=== PATIENT | male | born 1965 | race Caucasian/White ===

== ENCOUNTER 2025-02-01 10:21 | Emergency (ER) | payer BC, SELFPAY ==
--- NOTE | 2025-02-01 10:25 | ED_ITS ---
HPI - Skin/Abscess/Foreign Bdy General Chief complaint: Skin/Abscess/Foreign Body Stated complaint: L toe Time Seen by Provider: 02/01/25 10:25 Source: patient Mode of arrival: ambulatory Limitations: no limitations History of Present Illness HPI narrative: Isreal is a 59 year old male patient presenting to the clinic today with c/o left toe wound x2 weeks. He reports not sure what he did to his toe. Has a wound to the distal left 3rd toe. No pain, discharge, or redness. No fever, chills, or body aches. He is type 2 diabetic and suffers from neuropathy Related Data Home Medications ?Medication ?Instructions ?Recorded ?Confirmed ?Last Taken ?Type allopurinol 300 mg tablet mg 02/01/25 Unknown History buspirone 10 mg tablet mg 02/01/25 Unknown History diazepam 5 mg tablet mg 02/01/25 Unknown History duloxetine 30 mg capsule,delayed mg PO 02/01/25 Unkno wn History release fluticasone propionate 50 intranasal 02/01/25 Unknown History mcg/actuation nasal spray,suspension gabapentin 300 mg capsule mg 02/01/25 Unknown History glipizide 5 mg tablet mg 02/01/25 Unknown History ibuprofen 800 mg tablet mg 02/01/25 Unknown History metformin 1,000 mg tablet mg 02/01/25 Unknown History oxycodone-acetaminophen 10 mg-325 tablet 02/01/25 Unk nown History mg tablet pantoprazole 40 mg tablet,delayed mg PO 02/01/25 Unkn own History release trazodone 50 mg tablet mg 02/01/25 Unknown History Allergies Allergy/AdvReac Type Severity Reaction Status Date / Time No Known Allergies Allergy Verified 02/01/25 10:46 Review of Systems Review of Systems: Pertinent positives per HPI. Patient denies any fever, chills, rash, headache, visual changes, dizziness, cough, runny nose, sore throat, shortness of breath, chest pain, palpitations, nausea, vomiting, diarrhea, constipation, abdominal pain, or any urinary issues. PMFSH Comments At the time of my signature, I reviewed and agree with the nursing past medical, surgical, social, and family history. There is no relevant family history pertinent to the patient complaint. Exam Narrative: General: Well-developed, well nourished, in no apparent distress Head: Normocephalic, atraumatic. Cardio: Regular rate and rhythm, s1 and s2 normal, no murmur appreciated. Resp: Clear to auscultation bilaterally, no rhonchi, rales, wheezing or rubs. Integumentary: [place], warm, and dry, closed wound to the left 3rd distal toe without infection- has some old blood under the skin- no redness, swelling, or discharge. Course Course Emergency Course: Portions of this record may have been created with voice recognition software. Level of Care: Express Care Visit Vital Signs Vital signs: Vital Signs Temperature 36.5 C 02/01/25 10:34 Pulse Rate 78 02/01/25 10:34 Respiratory Rate 20 02/01/25 10:34 Blood Pressure 139/69 02/01/25 10:34 Pulse Oximetry 98 02/01/25 10:34 Oxygen Delivery Room Air 02/01/25 10:34 Temperature 36.5 C 02/01/25 10:34 Pulse Rate 78 02/01/25 10:34 Respiratory Rate 20 02/01/25 10:34 Blood Pressure 139/69 02/01/25 10:34 Pulse Oximetry 98 02/01/25 10:34 Oxygen Delivery Room Air 02/01/25 10:34 Vital signs reviewed MDM - Skin/Abscess/Foreign Bdy MDM Narrative Medical decision making narrative: At the time of visit patient is resting comfortably on the exam table. Patient appears to be nontoxic. C/o left toe wound x2 weeks. He reports not sure what he did to his toe. Has a wound to the distal left 3rd toe. No pain, discharge, or redness. No fever, chills, or body aches. He is type 2 diabetic and suffers from neuropathy. On exam patient has closed wound to the left 3rd distal toe without infection- has some old blood under the skin- no redness, swelling, or discharge. Plan: Patient has a non infected wound to the left distal 3rd toe. Offered x- ray and patient declined. Recommend following up with PCP/horse groomer. Supportive measures were discussed with the patient and they voiced understanding discharge instructions and agrees to treatment plan. Return precautions reviewed Differential Diagnosis Differential diagnosis: Likely abscess of skin or subcutaneous tissue, viral exanthem, dermatophytosis, urticaria, herpes zoster, allergic reaction to drug, cellulitis, insect bites, impetigo and contact dermatitis Discharge Plan Discharge Clinical Impression: Open wound of toe of left foot Patient Disposition: Home Condition: Stable Instructions: Antibiotic Form, Wound Infection (ED) Additional Instructions: No signs or symptoms of infection in the clinic today Keep the area clean and dry Wash daily with soap and water Watch for signs and symptoms of infection which include redness, swelling, increase in pain, fever, purulent discharge, or streaking Follow-up with PCP/horse groomer as discussed Patient Language: [place] Prescriptions: No Action trazodone 50 mg tablet ibuprofen 800 mg tablet oxycodone-acetaminophen 10-325 mg tablet pantoprazole 40 mg tablet,delayed release (DR/EC) PO metformin 1,000 mg tablet buspirone 10 mg tablet gabapentin 300 mg capsule allopurinol 300 mg tablet fluticasone propionate 50 mcg/actuation spray,suspension INTRANASAL glipizide 5 mg tablet diazepam 5 mg tablet duloxetine 30 mg capsule,delayed release(DR/EC) PO Follow-up/Referrals: UNKNOWN,DOCTOR [Primary Care Provider] Time of Disposition: 10:45 Quality NIHSS Nursing Documentation ED NIHSS nursing documentation: reviewed/agree
[2025-02-01 10:34] VITALS: BP 139/69; PULSE 78; RESP 20; TEMP 36.5; O2SAT 98
--- OUTSIDE RECORDS SUMMARY | 2025-02-01 14:47 | XMS_ITS | Encounter Summary ---
Author Organization [facility] Address [facility] [place] [address] Care Team Providers Care Vessel Slagman Name Role Phone Unavailable Primary Care Provider Unavailabl e Encounter Details Date Type Department Care Team (Late st Contact Info) Description 08/21/2018 Abstract [facility] CONVERSION [address] [place] [address] , Generic Conversion, Social History Tobacco Use Types Packs/Day Years Used Date Smoking Tobacco: Every Day Cigarettes 0.5 40 Smokeless Tobacco: Never Alcohol Use Standard Drinks/Week Comments No 0 (1 standard drink = 0.6 oz pur e alcohol) Sex and Gender Information Value Date Recorded Sex Assigned at Not on file Legal Sex Male 8:30 PM CDT Gender Identity Not on file Sexual Orientation Not on file documented as of this encounter Functional Status * RETIRED Are you deaf or do you have serious difficulty hearing Answer Date of Assessment Author Status No 08/23/2017 12:30 PM CDT Acti ve * RETIRED Are you blind or do you have serious difficulty seeing, even when wearing glasses? Answer Date of Assessment Author Status No 08/23/2017 12:30 PM CDT Acti ve * Do you have serious difficulty walking or climbing stairs? Answer Date of Assessment Author Status No 08/23/2017 12:30 PM CDT Nolvia Moise R N Active * Do you have difficulty dressing or bathing? Answer Date of Assessment Author Status No 08/23/2017 12:30 PM CDT Nolvia Moise R N Active * Because of a physical, mental, or emotional condition, do you have difficulty doing errands alone such as visiting a doctor's office or shopping? Answer Date of Assessment Author Status No 08/23/2017 12:30 PM Nolvia Nixon R N Active documented as of this encounter Mental Status * Because of a physical, mental, or emotional condition, do you have serious difficulty concentrating, remembering, or making decisions? Answer Entry Date Author Status No 08/23/2017 12:30 PM Nolvia Nixon R N Active documented in this encounter Plan of Treatment Not on file documented as of this encounter Visit Diagnoses Not on filedocumented in this encounter
--- OUTSIDE RECORDS SUMMARY | 2025-02-01 14:47 | XMS_ITS | Clinical Summary ---
Author Organization [facility] Address [address] [place] [address] Care Team Providers Care Collection Analyst Name Role Phone Nigel Whitney Primary Care Provider [phone] Alissa Wesley MD Unavailable [phone] Allergies No known active allergies Medications aspirin 81 mg enteric coated tablet Take 1 tablet (81 mg total) by mouth daily 90 tablet 3 10/24/19 21 Active Additional Information Patient not taking.Reported on 08/17/2024 flash glucose scanning reader (FreeStyle Julio 14 Day [place]) miscIndications :Type 2 diabetes mellitus with diabetic polyneuropathy, without long-term current use of insulin (HCC) Use to scan sensor as directed 1 each 01/31/20 21 Active flash glucose sensor (FreeStyle Julio 2 Sensor) kitIndications: Diabetes mellitus type II, non insulin dependent (HCC) 1 Device every 14 (fourteen) days 2 kit 11 04/15/19 23 Active nitroglycerin (NITROSTAT) 0.[address] 1 tablet (0.4 mg total) under the tongue every 5 (five) minutes as needed for chest pain (Chest pain) 30 tablet 12/27/19 23 Active isosorbide mononitrate ER (IMDUR) 30 mg 24 hr tablet TAKE 1 TABLET BY MOUTH DAILY 90 tablet 3 04/24/19 24 Active Farxiga 10 mg tablet TAKE 1 TABLET BY MOUTH DAILY 30 tablet 10 04/27/19 24 Active Additional Information Patient not taking.Reported on 08/17/2024 atorvastatin (LIPITOR) 40 mg tablet TAKE 1 TABLET BY MOUTH NIGHTLY 90 tablet 3 05/27/19 24 Active clopidogreL (PLAVIX) 75 mg tablet TAKE 1 TABLET BY MOUTH DAILY 90 tablet 1 09/14/19 24 Active Additional Information Patient not taking.Reported on 08/17/2024 lidocaine (LIDODERM) 5 % Place 2 patches on the skin daily Remove & discard patch within 12 hours or as directed by MD. 60 patch 11 03/29/19 25 Active valsartan (DIOVAN) 160 mg tablet Take 1 tablet (160 mg total) by mouth daily 30 tablet 11 03/29/19 25 026 Active metFORMIN (GLUCOPHAGE) 1,000 mg tablet TAKE 1 TABLET BY MOUTH TWICE DAILY WITH MEALS 180 tablet 2 06/07/19 25 Active allopurinoL (ZYLOPRIM) 300 mg tablet TAKE 1 TABLET (300 MG TOTAL) BY MOUTH DAILY 90 tablet 2 06/07/19 25 Active furosemide (LASIX) 40 mg tablet Take 1 tablet (40 mg total) by mouth 2 (two) times a day 60 tablet 11 06/17/19 25 Active gabapentin (NEURONTIN) 300 mg capsule Take 1 capsule (300 mg total) by mouth 3 (three) times a day 270 capsule 3 10/04/19 25 Active glipiZIDE (GLUCOTROL) 5 mg tablet Take 1 tablet (5 mg total) by mouth daily with breakfast 30 tablet 10 10/04/[address] (PROTONIX) 40 mg EC tablet Take 1 tablet (40 mg total) by mouth daily 90 tablet 3 10/15/19 25 Active ibuprofen (ADVIL,MOTRIN) 800 mg tablet TAKE 1 TABLET BY MOUTH TWICE DAILY NEEDED FOR PAIN 60 tablet 5 11/29/19 25 Active oxyCODONE-aceta minophen (PERCOCET) 10-325 mg per tablet Take 1 tablet by mouth every 8 (eight) hours as needed for pain 90 tablet 12/10/19 25 Active busPIRone (BUSPAR) 15 mg tablet TAKE 1 TABLET(15 MG) BY MOUTH TWICE DAILY 180 tablet 02/01/20 25 Active busPIRone (BUSPAR) 15 mg tabletIndicatio ns:Generalized Anxiety Disorder Take 1 tablet (15 mg total) by mouth 2 (two) times a day 180 tablet 10/26/19 25 025 Discontinued Active Problems Problem Noted Date Diagnosed Date Diabetic polyneuropathy asso ciated with type 2 diabetes mellitus 03/29/2024 Dyspnea on exertion 11/25/2022 Body mass index 40.0-44.9, adult ([facility]) 04/15 Diabetic neuropathy, type II diabetes mellitus 1 Assessment & Plan (03/29/2024 9:48 AM PLUNKET NURSE): Chronic. Stable. Continue gabapentin 300 mg t.i.d.. Monitor H/O heart artery stent 11/29/2021 On chronic clopidogrel therapy 11/29/2021 Chest pain 11/19/2021 Smoker 11/17/2021 DM (diabetes mellitus) 08/24/2017 Hypertension associated with diabetes 08/24/2017 Assessment & Plan (03/29/2024 9:51 AM PLUNKET NURSE): Chronic. Uncontrolled. Blood pressure elevated in office today. Start valsartan 160 mg daily. Check labs in 2-3 weeks. Referral placed to Cardiology. Check blood pressure daily and send us an update in 2 weeks. A1c elevated. Patient has not been compliant with taking his medications. Restart Farxiga 10 mg daily, glipizide 5 mg daily, metformin a 1000 mg b.i.d.. Recheck A1c in 3 months. HLD (hyperlipidemia) 08/24/2017 Assessment & Plan (03/29/2024 9:48 AM PLUNKET NURSE): Chronic. LDL 105. Continue atorvastatin 40 mg daily. Monitor Mass of parotid gland 09/14/2014 Exertional angina Assessment & Plan (03/29/2024 9:46 AM PLUNKET NURSE): Chronic. Stable. No current symptoms. Referral placed for Cardiology Resolved Problems Problem Noted Date Diagnosed Date Resolved Date Coronary artery disease invo lving [place] coronary artery of [place] heart 11/29/2021 03/29/19 25 Chest pain, unspecified type 11/17/2021 03/29/2024 Class 2 obesity with body ma ss index (BMI) of 39.0 to 39.9 in adult 06/26/2021 03/29/2024 Encounters Date Type Department Care Team Description 01/25/2025 Telephone [facility] Family Medicine [address] [place] [phone] Nigel Whitney PA Referral Request 12/31/2024 8:40 AM CDT Lab [facility] [address] [place] [id number] from Last 3 Months Immunizations Immunization Administration Dates Next Due Influenza, Unspecified 03/29/2024(Deferr ed: Patient Refused),05/17/2023(Deferred: Patient Refused),10/07/2022(Deferred: Patient Refused),09/29/2022(Deferred: Patient Refused) Surgical History Surgery Date Site/Laterality Comments ASPIRATION OF ABSCESS HEMATOMA CYST 10/12/2014 N/A IR FINE NEEDLE ASPIRATION W IMAGE GUIDANCE 09/20/2014 N/A Medical History Medical History Date Comments Hypertension Diabetes mellitus Cancer of parotid gland (HCC) Gout Peripheral neuropathy Anxiety GERD (gastroesophageal reflux disease) Arthritis Heart disease Family History Medical History Relation Name Comments Cancer Brother 1 2 Esophageal cancer Brother 2 Suicide Completion Brother 3 Arthritis Father Bret perrysom Cancer Father Bret wilsom Heart attack Father Bret wilsom Prostate cancer Father Bret wilsom Tuberculosis Father Bret perrysom Arthritis Mother Masha arthur Breast cancer Mother Masha arthur Cancer Mother Masha arthur Clotting disorder Mother Masha arthur Diabetes Mother Masha arthur Heart attack Mother Masha arthur Heart disease Mother Masha arthur Hypertension Mother Masha arthur Melanoma Mother Masha arthur Ovarian cancer Mother Masha arthur Stroke Mother Masha arthur Cancer Sister 1 4 Relation Name Status Comments Brother 1 2 Alive Brother 2 Brother 3 Father Bret morris Mother Masha morris Sister 1 4 Alive Sister 2 Social History Tobacco Use Types Packs/Day Years Used Date Smoking Tobacco: Some Days Cigarettes 0.2 42.7 Started: 05/14/1982 Smokeless Tobacco: Never Tobacco Cessation:Ready to Q uit: Yes; Counseling Given: Not Answered Alcohol Use Standard Drinks/Week Comments No 0 (1 standard drink = 0.6 oz pur e alcohol) AUDIT-C Answer Date Recorded Q1: How often do you have a drink containing alcohol? Monthly or less 11/19/2021 Q2: How many drinks containi ng alcohol do you have on a typical day when you are drinking? Patient does not drink Q3: How often do you have si x or more drinks on one occasion? Never 11/19/2021 PHQ-2 Answer Date Recorded PHQ-2 Total Score (If total score is 3 or more points, staff should administer the PHQ-9) 0 03/29/2024 Personal Safety Answer Date Recorded Have you ever been in or are you currently in a harmful physical or emotional relationship or is someone making you feel afraid or unsafe? Denies 10/24/2024 Sex and Gender Information Value Date Recorded Sex Assigned at Not on file Legal Sex Male 6:17 AM PLUNKET NURSE Gender Identity Not on file Sexual Orientation Not on file Last Filed Vital Signs Vital Sign Reading Time Taken Comments Blood Pressure 139/75 10/24/2024 10:00 AM CDT Pulse 74 10/24/2024 10:50 AM CDT Temperature 37.2 C (99 F) 10/24/2024 7:48 AM CDT Respiratory Rate 9 10/24/2024 10:0 0 AM CDT Oxygen Saturation 100% 10/24/2024 10: 50 AM CDT Inhaled Oxygen Concentration - - Weight 125.1 kg (275 lb 12.7 oz) 10/24/2024 7:48 AM CDT Height 182.9 cm (6') 10/24/2024 7:48 AM CDT Body Mass Index 37.4 10/24/2024 7:48 AM CDT Plan of Treatment Health Maintenance Due Date Last Done Comments Colon Cancer Screening-Colonoscopy 1965 Hepatitis C Screening 1965 Dilated Eye Exam 1965 DTaP/Tdap/Td Vaccine (1 - Tdap) 01/12/1976 Hepatitis B Screening 1983 Influenza Vaccine (#1) 2024 Pneumococcal vaccine <65 (1 of 2 - PCV) 03/14/2025 Postponed from 01/12/1984 (Patient declined, but will receive in the future) Depression Screening 03/29/2025 03/29/2024, 09/15/2022, 10/23/2020 Foot Exam 03/29/2025 03/29/2024 Regular Well Visit/Exam 18-64 03/29/2025 03/29/2024, 03/29/2024, 07/28/2022, Additional history exists Zoster Vaccine (1 of 2) 03/29/2025 Post poned from 2015 (Patient declined, but will receive in the future) Hemoglobin A1C 07/01/2025 12/31/2024, 06/14, 02/26/2024, Additional history exists Albumin Creatinine Ratio, Urine 07/02/2025 07/02/2024 Lipid Panel 12/31/2025 12/31/2024, 02/13, 09/26/2022, Additional history exists eGFR 12/31/2025 12/31/2024, 10/14, 07/02/2024, Additional history exists Prostate Cancer Screening-PSA 12/31/2026 12/31/2024, 02/26/2024 Medical Devices Implanted Type Area General Assignment Reporter Device Identifier Shelf Expiration Date Model / Serial / Lot [employer] Resolute [place] 4mm 2.1-2.7fr 38mm 140cm Rapid Exchange Radiopaque [id number] - [id number] Implanted:Qty: 1 on 11/19/2021 by Jose Alcantar MD at [facility] [employer] 05/10/2024 [id number] / / [id number] Exie Stent Coronary De Rx Cocr Ors Msn 4.0x40mm [id number] - [id number] Implanted:Qty: 1 on 11/19/2021 by Jose Alcantar MD at [facility] Exie 04/25/2023 [id number] / / [id number] [employer] Angio-Seal Vip 6fr Closere Device [id number] - [id number] Implanted:Qty: 1 on 11/19/2021 by Jose Alcantar MD at [facility] [employer] 06/13/2022 [id number] / / [id number] Procedures Procedure Name Priority Date/Time Associated Diagnosis Comments URINALYSIS AND REFLEX TO MICROSCOPIC Routine 12/31/2024 8:53 AM CDT URINALYSIS AND REFLEX TO MICROSCOPIC AND CULTURE Routine 12/31/2024 8:53 AM CDT EGFR Routine 12/31/2024 8:49 AM CDT DIFFERENTIAL AUTO Routine 12/31/2024 8:4 9 AM CDT PRO B-TYPE NATRIURETIC PEPTIDE Routine 12/31/2024 8:49 AM CDT MAGNESIUM Routine 12/31/2024 8:49 AM CDT VITAMIN D 25 HYDROXY Routine 12/31/2024 8:49 AM CDT CRP, HIGH SENSITIVITY Routine 12/31/2024 8:49 AM CDT CBC WITH AUTO DIFFERENTIAL Routine 12/31/2024 8:49 AM CDT LIPID PANEL Routine 12/31/2024 8:49 AM CDT VITAMIN B12 Routine 12/31/2024 8:49 AM CDT URIC ACID Routine 12/31/2024 8:49 AM CDT TSH Routine 12/31/2024 8:49 AM CDT PSA DIAGNOSTIC Routine 12/31/2024 8:49 AM CDT HEMOGLOBIN A1C Routine 12/31/2024 8:49 AM CDT FOLATE Routine 12/31/2024 8:49 AM CDT ERYTHROCYTE SEDIMENTATION RATE Routine 12/31/2024 8:49 AM CDT COMPREHENSIVE METABOLIC PANEL Routine 12/31/2024 8:49 AM CDT ALBUMIN CREATININE RATIO, URINE Routine 07/02/2024 10:02 AM CDT Hypertension associated with diabetes (HCC) from Last 3 Months or Most Recently Relevant to Health Maintenance Results * Urinalysis reflex to microscopic (12/31/2024 8:53 AM CDT) Color, ur Yellow Yellow Comment:Testing performed by : [address] [address] Clarity, ur Clear Clear LYNN Comment:Testing performed by : [address] [address] Specific gravity, ur 1.011 1.003 - 1.030 LYNN Comment:Testing performed by : [address] [address] pH, urine 5.5 LYNN Comment: Interpretive Data U rine pH is affected by diet, medications, systemic acid-base disturbances, and renal tubular function. pH may affect urinary stone formation. For example, urine pH below 6.0 may help reduce the tendency for calcium phosphate stones and pH greater than 6.0 may reduce the tendency for uric acid stone formation. Source: [facility] ITC Current Interpretive Data was last revised on 2017 Testing performed by: [address] [address] Protein, ur ql Negative Negative LYNN Comment:Testing performed by : [address] [address] Glucose, ur ql Negative Negative LYNN Comment:Testing performed by : [address] [address] Ketones, ur Negative Negative LYNN Comment:Testing performed by : [address] [address] Bilirubin, ur Negative Negative LYNN Comment:Testing performed by : [address] [address] Blood, ur Negative Negative LYNN Comment:Testing performed by : [address] [address] Urobilinogen, ur <2.0 <2.0 mg/dL LYNN Comment:Testing performed by : [address] [address] Nitrite, ur Negative Negative LYNN Comment:Testing performed by : [address] [address] Leukocyte esterase, ur Negative Negative LYNN Comment:Testing performed by : [address] [address] UA reflex comment Reflex conditions for microscopic UA not met. LYNN BECKWITH Comment:Testing performed by : [address] [address] Urine 12/31/2024 8:53 AM CDT 12/31/2024 9:08 AM CDT us Allen Rosenberg MD LAB URINE ORDERABLES Final Result LYNN BECKWITH [address] Department [place] [address] * Urinalysis reflex to microscopic and culture Urine (12/31/2024 8:53 AM CDT) Color, ur Yellow Yellow Comment:Testing performed by : [address] [address] Clarity, ur Clear Clear LYNN BECKWITH Comment:Testing performed by : [address] [address] Specific gravity, ur 1.011 1.003 - 1.030 LYNN BECKWITH Comment:Testing performed by : [address] [address] pH, urine 5.5 LYNN BECKWITH Comment: Interpretive Data U rine pH is affected by diet, medications, systemic acid-base disturbances, and renal tubular function. pH may affect urinary stone formation. For example, urine pH below 6.0 may help reduce the tendency for calcium phosphate stones and pH greater than 6.0 may reduce the tendency for uric acid stone formation. Source: [facility] ITC Current Interpretive Data was last revised on 2017 Testing performed by: [address] [address] Protein, ur ql Negative Negative LYNN BECKWITH Comment:Testing performed by : [address] [address] Glucose, ur ql Negative Negative LYNN BECKWITH Comment:Testing performed by : [address] [address] Ketones, ur Negative Negative LYNN BECKWITH Comment:Testing performed by : [address] [address] Bilirubin, ur Negative Negative LYNN BECKWITH Comment:Testing performed by : [facility], [address] [place] [address], [place]., [address] Blood, ur Negative Negative LYNN BECKWITH Comment:Testing performed by : [address], [place]., [address] Urobilinogen, ur <2.0 <2.0 mg/dL LYNN BECKWITH Comment:Testing performed by : [address], [place]., [address] Nitrite, ur Negative Negative LYNN Comment:Testing performed by : [address], [place]., [address] Leukocyte esterase, ur Negative Negative LYNN Comment:Testing performed by : [address] [address] UA reflex comment Reflex conditions for microscopic UA not met. LYNN BECKWITH Comment:Testing performed by : [address], [place]., [address] Urine 12/31/2024 8:53 AM CDT 12/31/2024 9:08 AM CDT us Allen Rosenberg MD LAB MICROBIOLOGY - GENERAL ORDERABLES Final Result LYNN [address] Department [place] [address] * eGFR (12/31/2024 8:49 AM CDT) eGFR >90 >=60 mL/min/1. 73 m2 Comment: Interpretive Data Reference Interval Normal >/= 90 mL/min/1.73m2 Mildly decreased* 60 - 89 mL/min/1.73m2 Mildly to moderately decreased 45 - 59 mL/min/1.73m2 Moderately to severely decreased 30 - 44 mL/min/1.73m2 Severely decreased 15 - 29 mL/min/1.73m2 Kidney Failure < 15 mL/min/1.73m2 *Relative to young adult level Estimated glomerular filtration rate is determined by the 2020 CKD-EPI equation recommended by the National Kidney Foundation (A Unifying Approach to GFR Estimation: Recommendations of the NKF-ASK Task Force on Reassessing the Inclusion of Race in Diagnosing Kidney Disease, JASN 2020). The CKD-EPI equation should not be used for patients with unstable renal function and has not been validated in children and those over 70. Current interpretive data was last reviewed 2021. Testing performed by: [address] [address] Blood 12/31/2024 8:49 AM CDT 12/31/2024 9:09 AM CDT us Allen Rosenberg MD LAB BLOOD ORDERABLES Final Result [facility] [address] Department [place] [address] * Differential, auto (12/31/2024 8:49 AM CDT) Neutrophil abs 4.86 1.50 - 6.50 K/cumm Comment:Testing performed by : [address] [address] Imm gran abs 0.01 0.00 - 0.10 K/cumm LYNN Comment:Testing performed by : [address] [address] Lymphocyte abs 1.77 0.80 - 3.30 K/cumm LYNN Comment:Testing performed by : [address] [address] Monocyte abs 0.29 0.20 - 0.80 K/cumm LYNN Comment:Testing performed by : [address] [address] Eosinophil abs 0.22 0.00 - 0.50 K/cumm LYNN Comment:Testing performed by : [address] [address] Basophil abs 0.05 0.00 - 0.10 K/cumm LYNN Comment:Testing performed by : [address] [address] Neutrophil pct 67.5 % LYNN Comment: Interpretive Data Percent cell count reference ranges are not reported, since discordance with absolute values may lead to misinterpretation of CBC data. Current Interpretive Data was last revised on 2017. Testing performed by: [address] [address] Imm gran pct 0.1 % [facility] Comment: Interpretive Data Percent cell count reference ranges are not reported, since discordance with absolute values may lead to misinterpretation of CBC data. Current Interpretive Data was last revised on 2017. Testing performed by: [address] [address] Lymphocyte pct 24.6 % [facility] Comment: Interpretive Data Percent cell count reference ranges are not reported, since discordance with absolute values may lead to misinterpretation of CBC data. Current Interpretive Data was last revised on 2017. Testing performed by: [address] [address] Monocyte pct 4.0 % [facility] Comment: Interpretive Data Percent cell count reference ranges are not reported, since discordance with absolute values may lead to misinterpretation of CBC data. Current Interpretive Data was last revised on 2017. Testing performed by: [address] [address] Eosinophil pct 3.1 % [facility] Comment: Interpretive Data Percent cell count reference ranges are not reported, since discordance with absolute values may lead to misinterpretation of CBC data. Current Interpretive Data was last revised on 2017. Testing performed by: [address] [address] Basophil pct 0.7 % [facility] Comment: Interpretive Data Percent cell count reference ranges are not reported, since discordance with absolute values may lead to misinterpretation of CBC data. Current Interpretive Data was last revised on 2017. Testing performed by: [address] [address] Blood 12/31/2024 8:49 AM CDT 12/31/2024 9:10 AM CDT us Allen Rosenberg MD LAB BLOOD ORDERABLES Final Result LYNN [address] Department [place] [address] * Pro B-type natriuretic peptide (12/31/2024 8:49 AM CDT) NT-proBNP 241 <=300 pg/mL Comment: Interpretive Comments: A. Dyspnea in Acute Care Setting All Ages: < 300 pg/ml, acute heart failure unlikely. < 50 yrs: 300 - 450 pg/ml, further investigation warranted. > 450 pg/ml, acute heart failure likely. 50 - 74 yrs: 300 - 900 pg/ml, further investigation warranted. > 900 pg/ml, acute heart failure likely . > or = 75 yrs: 450 - 1800 pg/ml, further investigation warranted. > 1800 pg/ml, acute heart failure likely. B. Non-acute Setting < 75 yrs < 125 pg/ml, rules out heart failure. > or = 125 pg/ml, further investigation warranted. > or = 75 yrs < 450 pg/ml, rules out heart failure. > or = 450 pg/ml, further investigation warranted. - Knowledge of each individual patient's NT-proBNP range may be more useful than using similar cut-points for every patient. Please note that marked elevations in NT-proBNP levels may be observed in state other than Left Ventricular Congestive Failure, including: acute coronary syndromes, right heart strain/failure (including pulmonary embolism and cor pulmonale), critical illness, renal failure, as well as advanced age. - References: 1. Shahla MAO et.al. Eur Heart J. 2006:27:330-337. 2. Ritika RW, Irasema LILLY. J. AM Suzette Cardiol: Cardiovasc Imag. 2009;2: 216- 225. Interpretive Data Last Revised Date: 2017. Testing performed by: [facility], [address] [place] [address]., [address] Blood 12/31/2024 8:49 AM CDT 12/31/2024 9:09 AM CDT Allen Rosenberg MD LAB BLOOD ORDERABLES Final Result Performing Organization Address City/State/[facility] Co de Phone Number LYNN [address] [place] [address] * CBC with auto differential (12/31/2024 8:49 AM CDT) [facility] WBC 7.20 3.80 - 9.90 K/cumm Comment:Testing performed by : [address] [address] Hgb 14.0 13.0 - 17.5 g/dL LYNN Comment:Testing performed by : [address] [address] Hct 41.0 38.9 - 50.3 % LYNN Comment:Testing performed by : [address], [address] Plt 176 150 - 400 K/cumm LYNN Comment:Testing performed by : [address] [address] MPV 10.4 9.1 - 12.3 fL LYNN Comment:Testing performed by : [address], [address] RBC 4.61 4.30 - 5.80 M/cumm LYNN Comment:Testing performed by : [address] [address] MCV 88.9 81.3 - 96.4 fL LYNN Comment:Testing performed by : [address] [address] MCH 30.4 27.1 - 33.3 pg LYNN Comment:Testing performed by : [address], [address] MCHC 34.1 32.3 - 35.7 g/dL LYNN Comment:Testing performed by : [address], [address] RDW CV 13.1 11.1 - 14.9 % LYNN Comment:Testing performed by : [address] [address] RDW SD 42.5 35.7 - 48.1 fL LYNN Comment:Testing performed by : [address], [address] NRBC abs 0.00 0.00 - 0.01 K/cumm LYNN Comment:Testing performed by : [facility], [address] [place] [address]., [address] Blood 12/31/2024 8:49 AM CDT 12/31/2024 9:10 AM CDT Allen Rosenberg MD LAB BLOOD ORDERABLES Final Result Performing Organization Address [facility] Co de Phone Number [address] [place] [address] * Vitamin D 25 hydroxy (12/31/2024 8:49 AM CDT) Pathologist [facility] Vitamin D 25-OH 33.0 30.0 - 80.0 ng/mL Blood 12/31/2024 8:49 AM CDT 12/31/2024 10:13 AM CDT Allen Rosenberg MD LAB BLOOD ORDERABLES Final Result Performing Organization Address [facility] de Phone Number [address] [place] [address] * Erythrocyte sedimentation rate (12/31/2024 8:49 AM CDT) Pathologist [facility] Erythrocyte sedimentation rate 4 1 - 20 mm/hr Comment:Testing performed by : [facility], [address] [place] [address]., [address] Blood 12/31/2024 8:49 AM CDT 12/31/2024 9:10 AM CDT Allen Rosenberg MD LAB BLOOD ORDERABLES Final Result Performing Organization Address [facility] de Phone Number [address] [place] [address] * CRP (cardiac risk) (12/31/2024 8:49 AM CDT) hsCRP 0.40 mg/L Comment: Interpretive data Adult only - values greater than or equal to 10 mg/L are consistent with infection or inflammation. Individuals with evidence of active infection, systemic inflammatory processes, or trauma should not be tested until these conditions have abated. When using HS CRP to assess cardiovascular risk, two measurements should be taken, two weeks apart (averaging results). The CDC/AHA recommended the following HS CRP cut off points (tertiles) for CVD assessment. Adult low risk <1.0 mg/L Average risk 1.0 - 3.0 mg/L High Risk >3.0 mg/L Current interpretive data was last revised on 2017. Testing performed by: [address] [address] Blood 12/31/2024 8:49 AM CDT 12/31/2024 9:09 AM CDT Allen Rosenberg MD LAB BLOOD ORDERABLES Final Result Performing Organization Address City/[facility]/ZIP Co de Phone Number [address] [place] [address] * Uric acid (12/31/2024 8:49 AM CDT) Uric acid 4.6 3.0 - 8.0 mg/dL Comment:Testing performed by : [address] [address] Blood 12/31/2024 8:49 AM CDT 12/31/2024 9:09 AM CDT Allen Rosenberg MD LAB BLOOD ORDERABLES Final Result [address] [place] [address] * TSH (12/31/2024 8:49 AM CDT) Thyroid Stimulating Hormone 0.57 0.30 - 4.20 mcIUnit/mL Comment:Testing performed by : [address] [id number] Blood 12/31/2024 8:49 AM CDT 12/31/2024 9:09 AM CDT Allen Rosenberg MD LAB BLOOD ORDERABLES Final Result L[facility] [address] [place] [address] * PSA diagnostic (12/31/2024 8:49 AM CDT) PSA-Total 2.36 <=5.40 ng/mL Comment: Interpretive Data AGE SEX REFERENCE INTERVAL 0 minutes-150 years Female None 0 minutes-49 years Male None 50-59 years Male 0-3.90 60-69 years Male 0-5.40 70-79 years Male 0-6.20 80-150 years Male 0-6.20 The Dora PSA Total assay procedure was used. Results from different manufacturers or methods may not be comparable. Serial testing should be performed using the same method. Current interpretive data last revised 21. Testing performed by: [address] [address] Blood 12/31/2024 8:49 AM CDT 12/31/2024 9:09 AM CDT Allen Rosenberg MD LAB BLOOD ORDERABLES Final Result Performing Organization Address [facility] Co de Phone Number [address] [place] [address] * Magnesium (12/31/2024 8:49 AM CDT) Magnesium 1.4 1.4 - 2.5 mg/dL Comment:Testing performed by : [address] [address] Blood 12/31/2024 8:49 AM CDT 12/31/2024 9:09 AM CDT Allen Rosenberg MD LAB BLOOD ORDERABLES Final Result [facility] [address] [place] [address] * (ABNORMAL) Hemoglobin A1c (12/31/2024 8:49 AM CDT) [facility] Hgb A1C 7.0(H) 4.0 - 5.6 % Comment:Testing performed by : [address] [address] Estimated Average Glucose 154 mg/dL LYNN Comment: The ADA recommends reporting an estimated Average Glucose (eAG) with all Hemoglobin A1c results using the equation derived from a study of 507 normal and diabetic adults. Minority populations were underrepresented and children were not included. (Diabetes Care 31:8755-6870, 2008). The eAG is not equivalent to a fasting glucose. Testing performed by: [address] [address] Blood 12/31/2024 8:49 AM CDT 12/31/2024 9:10 AM CDT Allen Rosenberg MD LAB BLOOD ORDERABLES Final Result Performing Organization Address City/[facility]/ZIP Co de Phone Number [address] [address] * Folate (12/31/2024 8:49 AM CDT) [facility] Folic acid 11.5 >=5.0 ng/mL Comment:Testing performed by : [address] [address] Blood 12/31/2024 8:49 AM CDT 12/31/2024 9:09 AM CDT Allen Rosenberg MD LAB BLOOD ORDERABLES Final Result [address] [address] * Vitamin B12 (12/31/2024 8:49 AM CDT) [facility] Vitamin B12 313 230 - 1,250 pg/mL Comment:Testing performed by : [address] [address] Blood 12/31/2024 8:49 AM CDT 12/31/2024 9:09 AM CDT us Allen Rosenberg MD LAB BLOOD ORDERABLES Final Result [facility] [address] [place] [address] * Lipid panel (12/31/2024 8:49 AM CDT) Cholesterol 93 30 - 199 mg/dL Comment: Interpretive Data Ages < or = 19 years Acceptable: <170 mg/dL Borderline high: 170-199 mg/dL High: >or= 200 mg/dL Ages > or = 20 years Desirable: <200 mg/dL Borderline high: 200-239 mg/dL High: >or= 240 mg/dL Literature References: 1. Expert Panel on Integrated Guidelines for Cardiovascular Health and Risk Reduction in Children and Adolescents. Pediatrics 2011;128:S213 2. NCEP Expert Panel. Circulation 2004;110:227 Current Interpretive Data was last revised on 2017. Testing performed by: [address] [address] Triglycerides 67 <=149 mg/dL LYNN Comment: Interpretive Data Ages < or = 9 years Acceptable: <75 mg/dL Borderline high: 75-99 mg/dL High: >or= 100 mg/dL Ages 10 to 20 years Acceptable: <90 mg/dL Borderline high: 90-129 mg/dL High: >or= 130 mg/dL Ages > or = 20 years Desirable: <150 mg/dL Borderline high: 150-199 mg/dL High: 200-499 mg/dL Very high: >or= 499 mg/dL Literature References: 1. Expert Panel on Integrated Guidelines for Cardiovascular Health and Risk Reduction in Children and Adolescents. Pediatrics 2011;128:S213 2. NCEP Expert Panel. Circulation 2004;110:227 Current Interpretive Data was last revised on 2017. Testing performed by: [address] [address] HDL 46 >=40 mg/dL LYNN Comment: Interpretive Data Ages < or = 19 years Acceptable: >45 mg/dL Borderline low: 40-45 mg/dL Low: <40 mg/dL Ages > or = 20 years Desirable: >or= 60 mg/dL Low: <40 mg/dL Literature References: 1. Expert Panel on Integrated Guidelines for Cardiovascular Health and Risk Reduction in Children and Adolescents. Pediatrics 2011;128:S213 2. NCEP Expert Panel. Circulation 2004;110:227 Current Interpretive Data was last revised on 2017. Testing performed by: [address] [address] LDL, calculated 32 <=129 mg/dL LYNN BECKWITH Comment: Interpretive Data Ages < or = 19 years Acceptable: <110 mg/dL Borderline high: 110-129 mg/dL High: >or= 130 mg/dL Ages > or = 20 years Optimal: <100 mg/dL Near optimal: 100-129 mg/dL Borderline high: 130-159 mg/dL High: >160 mg/dL Calculated using the Augustine LDL-C estimating equation. This equation was implemented on 2023. Prior to this date LDL-C was estimated using the Friedewald equation. Literature References: 1. Expert Panel on Integrated Guidelines for Cardiovascular Health and Risk Reduction in Children and Adolescents. Pediatrics 2011;128:S213 2. NCEP Expert Panel. Circulation 2004;110:227 3. Augustine Kolb al. RODDY Cardiol. 2019July 14;5(5):540-548. doi: 10.1001/[email or web address] Current Interpretive Data was last revised on 2023. Testing performed by: [address] [address] Non-HDL Cholesterol 47 mg/dL LYNN Comment: Interpretive Data Ages < or = 19 years Acceptable: <120 mg/dL Borderline high: 120-144 mg/dL High: >145 mg/dL Ages > or = 20 years When triglycerides are >200 mg/dL, Non-HDL cholesterol is a secondary target of therapy with treatment goals that are 30 mg/dL greater than the LDL cholesterol target. Literature References: 1. Expert Panel on Integrated Guidelines for Cardiovascular Health and Risk Reduction in Children and Adolescents. Pediatrics 2011;128:S213 2. NCEP Expert Panel. Circulation 2004;110:227 Current Interpretive Data was last revised on 2017. Testing performed by: [address] [address] Chol/HDL ratio 2 LYNN Comment:Testing performed by : [address] [address] Blood 12/31/2024 8:49 AM CDT 12/31/2024 9:09 AM CDT us Allen Rosenberg MD LAB BLOOD ORDERABLES Final Result [facility] [place] [address] * (ABNORMAL) Comprehensive metabolic panel (12/31/2024 8:49 AM CDT) Sodium 137 135 - 145 mmol/L Comment:Testing performed by : [address] [address] Potassium, pl 4.2 3.3 - 4.9 mmol/L LYNN Comment:Testing performed by : [address] [address] Chloride 99 97 - 110 mmol/L LYNN Comment:Testing performed by : [address] [address] CO2 28 22 - 32 mmol/L LYNN Comment:Testing performed by : [address] [address] Anion gap 10 2 - 15 mmol/L LYNN Comment:Testing performed by : [address] [address] BUN 9 6 - 25 mg/dL LYNN Comment:Testing performed by : [address] [address] Creatinine 0.59(L) 0.80 - 1.30 mg/dL LYNN Comment:Testing performed by : [address] [address] Glucose 166 70 - 199 mg/dL LYNN Comment: Interpretive Data Fasting glucose >/= 126 mg/dl is diagnostic for diabetes. Fasting is defined as no caloric intake for at least 8 hours. Fasting glucose between 100 mg/dl to 125 mg/dl is diagnostic of prediabetes. In a patient with classic symptoms of hyperglycemia or hyperglycemic crisis, a random glucose >/= 200 mg/dl is diagnostic for diabetes. In the absence of unequivocal hyperglycemia, results should be confirmed by repeat testing. The classification and Diagnosis of Diabetes Diabetes Care 202; 46: S19-S40. Current interpretive data was last revised 2022. Testing performed by: [address] [address] Calcium 9.7 8.5 - 10.3 mg/dL LYNN Comment:Testing performed by : [address] [address] Bilirubin, total 0.7 0.1 - 1.2 mg/dL LNYN Comment:Testing performed by : [address] [address] Protein, pl 6.5 6.5 - 8.5 g/dL LYNN Comment:Testing performed by : [address] [address] Albumin 4.4 3.5 - 5.0 g/dL LYNN Comment:Testing performed by : [address] [address] Alk phos 68 40 - 130 Units/L LYNN Comment:Testing performed by : [address] [address] ALT 50 7 - 55 Units/L LYNN Comment:Testing performed by : [address] [address] AST 33 10 - 50 Units/L LYNN Comment:Testing performed by : [address] [address] Blood 12/31/2024 8:49 AM CDT 12/31/2024 9:09 AM CDT us Allen Rosenberg MD LAB BLOOD ORDERABLES Final Result [facility] [address] [place] [address] * Albumin Creatinine Ratio, Urine (07/02/2024 10:02 AM CDT) Albumin Ur 19.9 mg/L Comment: Interpretive Data No reference range established. Current interpretive data was last revised 2018. Testing performed by: [address] [address] Creatinine Ur 161.5 mg/dL LYNN Comment: Interpretive Data No reference range established. Current interpretive data was last revised 2018. Testing performed by: [address] [address] Albumin Creatinine Ratio, Ur 12 1 - 29 mg/g LYNN Comment:Testing performed by : [address] [address] Urine 07/02/2024 10:0 2 AM CDT 07/02/2024 12:30 PM CDT Nai Carias LUMP INSPECTOR LAB URINE ORDERABLES F inal Result Performing Organization Address [facility] de Phone Number [facility] [address] [place] [address] from Last 3 Months or Most Recently Relevant to Health Maintenance Insurance [facility] IDPA Advance Directives For more information, please contact: [phone] * Full Code (Latest Code Status on File) Date Activated Date Inactivated Comments 11/19/2021 12:31 PM 11/21/2021 2:29 PM * Full Code Date Activated Date Inactivated Comments 11/17/2021 5:02 PM 11/19/2021 12:31 PM Care Teams Collection Analyst Relationship Specialty Start Date End Date Nigel Whitney PA [address] [place] [address] PCP - General Family Medicine 08/13/21 Alissa Wesley MD [address] [place] [address] Consulting Physician Interventional Cardiology 11/21/21
--- OUTSIDE RECORDS SUMMARY | 2025-02-01 14:47 | XMS_ITS | Encounter Summary ---
Author Organization [facility] Address [facility] [place] [address] Care Team Providers Care Director Of Community Education Name Role Phone Mey Sanches MD Primary Care Provider Unavailable Encounter Details Date Type Department Care Team (Late st Contact Info) Description 01/17/2017 [place] [address] Mey Sanches MD Social History Tobacco Use Types Packs/Day Years Used Date Smoking Tobacco: Never Assessed Sex and Gender Information Value Date Recorded Sex Assigned at Not on file Legal Sex Male 8:30 PM CDT Gender Identity Not on file Sexual Orientation Not on file documented as of this encounter Plan of Treatment Not on file documented as of this encounter Visit Diagnoses Not on filedocumented in this encounter Care Teams Director Of Community Education Relationship Specialty Start Date End Date Mey Sanches MD PCP - General 09/07/14 documented as of this encounter
--- OUTSIDE RECORDS SUMMARY | 2025-02-01 14:47 | XMS_ITS | Clinical Summary ---
Author Organization [facility] Address [facility] [place] [address] Care Team Providers Care Medical Assistant Name Role Phone Unavailable Primary Care Provider Unavailabl e Allergies No known active allergies Medications metFORMIN 1000 MG tablet Take 1,000 mg by mouth 2 (two) times daily with meals. Active glipiZIDE 10 MG tablet Take 10 mg by mouth 2 (two) times daily before meals. Active lisinopril 5 MG tablet Take 5 mg by mouth daily. Active allopurinol 300 MG tablet Take 300 mg by mouth daily. Active hydrocodone-acet aminophen 10-325 MG tablet Take 1 tablet by mouth every 4 (four) hours as needed for Pain. Active DiazePAM 10 MG tablet Take 10 mg by mouth every 6 (six) hours as needed for Anxiety. Active gabapentin 300 MG capsule Take 300 mg by mouth 2 (two) times a day. SAID PT DOES NOT ALWAYS TAKE THIS Active omeprazole 20 MG capsule Take 20 mg by mouth daily. Active Active Problems Problem Noted Date Diagnosed Date Chest pain 08/22/2017 Assessment & Plan (08/23/2017 8:19 AM CDT): Acute, POA. Risk factors of obesity, smoking, HTN, and DM . Heart score of 6. EKG shows poor R wave progression concerning for anterior [place]. - Aspirin 325 mg given in emergency department, will continue 81 mg daily - Sublingual nitroglycerin 0.4 mg for recurrent chest pain suspicious for a cardiac cause - Obtain repeat EKG if new chest pain - Cardiac enzymes negative x3 - Cardiac monitoring via telemetry - Obtain cardiac stress test - ASCVD risk 32%, will DC on high dose statin - NPO at midnight HTN (hypertension) 08/22/2017 Assessment & Plan (08/22/2017 2:42 PM CDT): Chronic. Controlled. -continue home lisinopril Diabetes 08/22/2017 Assessment & Plan (08/23/2017 8:19 AM CDT): Chronic. Blood glucose elevated to 174 on admission. -Continue home glipizide--will hold as patient is NPO -continue home metformin-will hold tomorrow in case patient needs cath Family History Medical History Relation Comments Diabetes Mother Relation Status Comments Mother Social History Tobacco Use Types Packs/Day Years [...] Sign Reading Time Taken Comments Blood Pressure 148/82 08/23/2017 11:57 AM CDT Pulse 78 08/23/2017 11:57 AM CDT Temperature 36.8 C (98.2 F) 08/23/2017 11:57 AM CDT Respiratory Rate 20 08/23/2017 11:5 7 AM CDT Oxygen Saturation 97% 08/23/2017 11: 57 AM CDT Inhaled Oxygen Concentration - - Weight 156.9 kg (345 lb 12.8 oz) 2017 12:23 PM CDT Height 182.9 cm (6') 08/22/2017 12:23 PM CDT Body Mass Index 46.9 08/22/2017 12:23 PM CDT Plan of Treatment Health Maintenance Due Date Last Done Comments Colorectal Cancer Screening Colonoscopy (10 Years) 1965 Annual Physical 01/12/1968 Hepatitis C 1983 DTaP, Tdap and Td Vaccines ( 1 - Tdap) 01/12/1984 Pneumococcal Vaccine: 50+ Ye ars (1 of 1 - PCV) 2015 Zoster Vaccines (1 of 2) 2015 COVID-19 Vaccine ( - 2024-2 6 season) 2024 Influenza Adult (#1) 2024 RSV Immunization or 60+ Years (1 - 1-dose 75+ series) 01/12/2040 Hepatitis A Vaccines Aged Out No long er eligible based on patient's age to complete this topic Meningococcal B Vaccine Aged Out No l onger eligible based on patient's age to complete this topic Meningococcal Vaccine Aged Out No grzegorz maxine eligible based on patient's age to complete this topic RSV Immunizations Under 20 Months Aged Out No longer eligible based on patient's age to complete this topic Advance Directives * Full Code (Latest Code Status on File) Date Activated Date Inactivated Comments 08/22/2017 3:42 PM 08/23/2017 4:01 PM
== END 2025-02-01 10:48 | disposition home or self-care (01) ==
PROVIDERS: Emergency Provider Nurse Practitioner Family
DX: S91.105A Unspecified open wound of left lesser toe(s) without damage to nail, initial encounter (principal); X58.XXXA Exposure to other specified factors, initial encounter; E11.42 Type 2 diabetes mellitus with diabetic polyneuropathy; Z79.84 Long term (current) use of oral hypoglycemic drugs; I10 Essential (primary) hypertension; E78.00 Pure hypercholesterolemia, unspecified; K21.9 Gastro-esophageal reflux disease without esophagitis; M19.90 Unspecified osteoarthritis, unspecified site; F41.9 Anxiety disorder, unspecified; F32.A Depression, unspecified; M10.9 Gout, unspecified
CPT/HCPCS: 99202; G0463